=== PATIENT | male | born 1930 | race Caucasian/White ===

== ENCOUNTER 2016-02-29 08:00 | Outpatient (CLI) | payer MEDICARE, OTHER | END 2016-02-29 08:01 | disposition home or self-care (01) | DX: I10 Essential (primary) hypertension (principal); G62.9 Polyneuropathy, unspecified ==

== ENCOUNTER 2016-07-25 07:28 | Outpatient (CLI) | payer MEDICARE, OTHER ==
[2016-07-25 13:22] LABS: BASOPHILS % (AUTO) 0.6 %; EOSINOPHILS # (AUTO) 0.2 10^3/uL (0.0-0.7); EOSINOPHILS % (AUTO) 2.9 %; HCT - HEMATOCRIT 45.7 % (42.0-52.0); HGB - HEMOGLOBIN 15.3 g/dL (14.0-18.0); LYMPHOCYTES # (AUTO) 2.1 10^3/uL (1.5-3.5); LYMPHOCYTES % (AUTO) 28.8 %; MEAN CORPUSCULAR HEMOGLOBIN 33.1 pg (27.0-31.0); MEAN CORPUSCULAR HGB CONC 33.5 g/dL (32.0-36.0); MEAN CORPUSCULAR VOLUME 98.7 fL (80.0-94.0); MEAN PLATELET VOLUME 11.2 fL (7.4-11.4); MONOCYTES # (AUTO) 0.7 10^3/uL (0.0-1.0); MONOCYTES % (AUTO) 10.2 %; NEUTROPHILS # (AUTO) 4.1 10^3/uL (1.5-6.6); NEUTROPHILS % (AUTO) 57.5 %; RED BLOOD COUNT 4.63 10^6/uL (4.70-6.10); RED CELL DISTRIBUTION WIDTH 13.5 % (12.0-15.0); UNCORRECTED WHITE BLOOD COUNT 7.2 x10^3/uL; WHITE BLOOD COUNT 7.2 x10^3/uL (4.8-10.8)
[2016-07-25 13:34] LABS: ALBUMIN/GLOBULIN RATIO 1.2 (1.0-2.2); BILIRUBIN,TOTAL 0.9 mg/dL (0.2-1.0); BUN - BLOOD UREA NITROGEN 29 mg/dL (6-20); CALCIUM 8.8 mg/dL (8.5-10.3); CARBON DIOXIDE - CO2 26 mmol/L (21-32); CHLORIDE 106 mmol/L (101-111); CHOL/HDL RATIO 3.5 (<5.0); CHOLESTEROL 143 mg/dL; CREATININE 1.4 mg/dL (0.6-1.2); GFR - MDRD 48 (>89); GLUCOSE 91 mg/dL (70-100); HDL CHOLESTEROL 41 mg/dL; LDL/HDL RATIO 1.8 (<3.6); POTASSIUM 4.1 mmol/L (3.5-5.0); SODIUM 139 mmol/L (135-145); TOTAL PROTEIN 6.9 g/dL (6.7-8.2); TRIGLYCERIDES 138 mg/dL; VLDL CHOLESTEROL 28 mg/dL
[2016-07-29 22:38] LABS: FREE TESTOSTERONE 35.5 pg/mL (30.0-135.0)
== END 2016-07-25 07:29 | disposition home or self-care (01) ==
LOC: LAB.WCP 07:28
PROVIDERS: ATTEND Family Medicine
DX: E78.5 Hyperlipidemia, unspecified (principal); I10 Essential (primary) hypertension; G62.9 Polyneuropathy, unspecified; N28.9 Disorder of kidney and ureter, unspecified; N52.9 Male erectile dysfunction, unspecified
CPT/HCPCS: 36415; 80053; 80061; 84402; 84403; 84443; 85025

== ENCOUNTER 2017-08-25 08:56 | Outpatient (CLI) | payer MEDICARE, OTHER ==
[2017-08-25 12:58] LABS: BASOPHILS # (AUTO) 0.1 10^3/uL (0.0-0.1); EOSINOPHILS # (AUTO) 0.4 10^3/uL (0.0-0.7); EOSINOPHILS % (AUTO) 5.2 %; HGB - HEMOGLOBIN 15.6 g/dL (14.0-18.0); LYMPHOCYTES # (AUTO) 2.5 10^3/uL (1.5-3.5); LYMPHOCYTES % (AUTO) 33.6 %; MEAN CORPUSCULAR HEMOGLOBIN 33.1 pg (27.0-31.0); MEAN CORPUSCULAR HGB CONC 33.2 g/dL (32.0-36.0); MEAN CORPUSCULAR VOLUME 99.8 fL (80.0-94.0); MEAN PLATELET VOLUME 10.5 fL (7.4-11.4); MONOCYTES # (AUTO) 0.7 10^3/uL (0.0-1.0); MONOCYTES % (AUTO) 8.9 %; NEUTROPHILS # (AUTO) 3.8 10^3/uL (1.5-6.6); NEUTROPHILS % (AUTO) 51.3 %; PLT - PLATELET COUNT 219 10^3/uL (130-450); RED BLOOD COUNT 4.72 10^6/uL (4.70-6.10); RED CELL DISTRIBUTION WIDTH 13.5 % (12.0-15.0); WHITE BLOOD COUNT 7.3 x10^3/uL (4.8-10.8)
[2017-08-25 13:29] LABS: ALBUMIN 3.7 g/dL (3.2-5.5); ALBUMIN/GLOBULIN RATIO 1.3 (1.0-2.2); ALKALINE PHOSPHATASE 74 IU/L (42-121); ALT ALANINE AMINOTRANSFERASE 19 IU/L (10-60); AST ASPARTATE AMINOTRANSFERASE 27 IU/L (10-42); BILIRUBIN,TOTAL 0.6 mg/dL (0.2-1.0); BUN - BLOOD UREA NITROGEN 33 mg/dL (6-20); CARBON DIOXIDE - CO2 28 mmol/L (21-32); CHLORIDE 106 mmol/L (101-111); CHOL/HDL RATIO 5.6 (<5.0); CHOLESTEROL 242 mg/dL; CREATININE 1.5 mg/dL (0.6-1.2); GFR - MDRD 44 (>89); GLUCOSE 92 mg/dL (70-100); HDL CHOLESTEROL 43 mg/dL; LDL CHOLESTEROL,CALCULATED 161 mg/dL; LDL/HDL RATIO 3.7 (<3.6); SODIUM 141 mmol/L (135-145); TOTAL PROTEIN 6.5 g/dL (6.7-8.2); VLDL CHOLESTEROL 38 mg/dL
== END 2017-08-25 08:57 ==
LOC: LAB.WCP 08:56
PROVIDERS: ATTEND Family Medicine
DX: I10 Essential (primary) hypertension (principal); E78.5 Hyperlipidemia, unspecified; R53.83 Other fatigue
CPT/HCPCS: 36415; 80053; 80061; 83721; 84443; 85025

== ENCOUNTER 2017-12-08 09:31 | Outpatient (CLI) | payer MEDICARE, OTHER ==
[2017-12-08 14:05] LABS: BASOPHILS # (AUTO) 0.1 10^3/uL (0.0-0.1); BASOPHILS % (AUTO) 1.2 %; EOSINOPHILS # (AUTO) 0.2 10^3/uL (0.0-0.7); EOSINOPHILS % (AUTO) 3.6 %; HGB - HEMOGLOBIN 15.6 g/dL (14.0-18.0); LYMPHOCYTES # (AUTO) 2.2 10^3/uL (1.5-3.5); LYMPHOCYTES % (AUTO) 32.2 %; MEAN CORPUSCULAR HGB CONC 33.9 g/dL (32.0-36.0); MEAN CORPUSCULAR VOLUME 97.3 fL (80.0-94.0); MEAN PLATELET VOLUME 10.5 fL (7.4-11.4); MONOCYTES # (AUTO) 0.7 10^3/uL (0.0-1.0); MONOCYTES % (AUTO) 10.2 %; NEUTROPHILS # (AUTO) 3.5 10^3/uL (1.5-6.6); NEUTROPHILS % (AUTO) 52.8 %; PLT - PLATELET COUNT 202 10^3/uL (130-450); RED BLOOD COUNT 4.74 10^6/uL (4.70-6.10); RED CELL DISTRIBUTION WIDTH 13.5 % (12.0-15.0); WHITE BLOOD COUNT 6.7 x10^3/uL (4.8-10.8)
[2017-12-08 14:40] LABS: ALBUMIN/GLOBULIN RATIO 1.3 (1.0-2.2); ALKALINE PHOSPHATASE 76 IU/L (42-121); ALT ALANINE AMINOTRANSFERASE 19 IU/L (10-60); AST ASPARTATE AMINOTRANSFERASE 28 IU/L (10-42); BILIRUBIN,TOTAL 1.3 mg/dL (0.2-1.0); BUN - BLOOD UREA NITROGEN 27 mg/dL (6-20); CARBON DIOXIDE - CO2 29 mmol/L (21-32); CHLORIDE 101 mmol/L (101-111); CHOL/HDL RATIO 6.5 (<5.0); CHOLESTEROL 286 mg/dL; CREATININE 1.5 mg/dL (0.6-1.2); GFR - MDRD 44 (>89); GLUCOSE 89 mg/dL (70-100); HDL CHOLESTEROL 44 mg/dL; LDL CHOLESTEROL,CALCULATED 197 mg/dL; LDL/HDL RATIO 4.5 (<3.6); SODIUM 140 mmol/L (135-145); VLDL CHOLESTEROL 45 mg/dL
== END 2017-12-08 09:32 | disposition home or self-care (01) ==
LOC: LAB.WCP 09:31
PROVIDERS: ATTEND Family Medicine
DX: E78.5 Hyperlipidemia, unspecified (principal); I10 Essential (primary) hypertension
CPT/HCPCS: 36415; 80053; 80061; 83721; 85025

== ENCOUNTER 2017-12-29 08:42 | Outpatient (CLI) | payer MEDICARE, OTHER ==
[2017-12-29 13:27] LABS: INR 1.8 (0.8-1.2); PT - PROTHROMBIN TIME 19.8 secs (9.9-12.6)
== END 2017-12-29 23:59 ==
LOC: LAB.WCP 08:42
PROVIDERS: ATTEND Family Medicine
DX: I48.91 Unspecified atrial fibrillation (principal); Z79.01 Long term (current) use of anticoagulants
CPT/HCPCS: 36415; 85610

== ENCOUNTER 2018-04-20 08:00 | Outpatient (CLI) | payer MEDICARE, OTHER | END 2018-04-20 23:59 | disposition home or self-care (01) | LOC: LAB.WCP 08:00 | PROVIDERS: ATTEND Family Medicine | DX: I48.91 Unspecified atrial fibrillation (principal); Z79.01 Long term (current) use of anticoagulants ==

== ENCOUNTER 2018-05-18 08:00 | Outpatient (CLI) | payer MEDICARE, OTHER | END 2018-05-18 23:59 | disposition home or self-care (01) | LOC: LAB.WCP 08:00 | PROVIDERS: ATTEND Family Medicine | DX: I48.91 Unspecified atrial fibrillation (principal); Z79.01 Long term (current) use of anticoagulants | CPT/HCPCS: 81025 ==

== ENCOUNTER 2018-06-07 06:47 | Outpatient (CLI) | payer MEDICARE, OTHER | END 2018-06-07 06:48 | disposition critical access hospital (66) | LOC: EMS 06:47 | PROVIDERS: ATTEND Surgery | DX: R42 Dizziness and giddiness (principal); R11.0 Nausea | CPT/HCPCS: A0425; A0427 ==

== ENCOUNTER 2018-06-07 07:08 | Emergency (ER) | payer MEDICARE, OTHER ==
[2018-06-07] MEDS ORDERED: ONDANSETRON ODT 4 MG TABLET TL STA (07:33)
[2018-06-07] MEDS ORDERED: MECLIZINE 12.5 MG TABLET PO STA (07:34)
--- NOTE | 2018-06-07 07:40 | ED Physician Documentation ---
History of Present Illness - Stated complaint Stated Complaint: DIZZY - Chief complaint Chief Complaint: Neuro - History obtained from History obtained from: Patient, EMS - History of Present Illness Timing: Today Pain level max: 0 Pain level now: 0 - Additonal information Additional information: 88-year-old male presents to the emergency department with a feeling of dizziness today. He describes the room is spinning. Worse with movement and better with rest. Has not had similar symptoms previously. No focal neurological deficits. No changes in his vision. No numbness or tingling in his arms or legs. No recent head injury. No headaches. Review of Systems Constitutional: denies: Fever, Chills Nose: denies: Rhinorrhea / runny nose, Congestion Cardiac: denies: Chest pain / pressure, Palpitations Respiratory: denies: Cough GI: denies: Nausea, Vomiting, Diarrhea Skin: denies: Rash Musculoskeletal: denies: Neck pain, Back pain Neurologic: denies: Focal weakness, Numbness, Confused, Altered mental status, Headache, Head injury PD PAST MEDICAL HISTORY - Past Medical History Cardiovascular: Atrial fibrillation Respiratory: None GI: Crohn's disease HEENT: None Psych: None Musculoskeletal: None Derm: None - Past Surgical History Past Surgical History: Yes Cardiovascular: CABG - Present Medications Home Medications: Ambulatory Orders Medication Instructions Recorded Confirmed Atenolol 50 mg PO DAILY 01/23/14 01/23/14 Felodipine [Plendil] 10 mg PO DAILY 01/23/14 01/23/14 Warfarin Sodium [Coumadin] 01/23/14 01/23/14 LORazepam [Ativan] 0.5 mg PO Q6H PRN #10 tablet 06/07/18 Meclizine HCl 25 mg PO Q6H PRN #20 tab.chew 06/07/18 Ondansetron Odt [Zofran] 4 mg TL Q6H PRN #10 tablet 06/07/18 Promethazine [Phenergan] 25 mg PO Q6H PRN #10 tab 06/07/18 Tamsulosin [Flomax] 0.4 mg ORAL DAILY 06/07/18 06/07/18 - Allergies Allergies/Adverse Reactions: Allergies Allergy/AdvReac Type Severity Reaction Status Date / Time No Known Drug Allergies Allergy Verified 06/07/18 07:17 - Social History Does the pt smoke?: No Smoking Status: Never smoker Does the pt drink ETOH?: Yes Does the pt have substance abuse?: No - Immunizations Immunizations are current?: Yes - POLST Patient has POLST: No PD ED PE NORMAL - Vitals Vital signs reviewed: Yes - General General: Alert and oriented X 3, No acute distress, Well developed/nourished - HEENT HEENT: PERRL, Moist mucous membranes - Neck Neck: Supple, no meningeal sign - Cardiac Cardiac: RRR, Strong equal pulses - Respiratory Respiratory: No respiratory distress, Clear bilaterally - Abdomen Abdomen: Soft, Non tender, Non distended - Derm Derm: Warm and dry - Extremities Extremities: No calf tenderness / cord - Neuro Neuro: Alert and oriented X 3, 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 Positive Hallpike to the left. Horizontal nystagmus present. Normal cerebellar test. Normal finger to nose. Results - Vitals Vitals: Vital Signs - 24 hr 06/07/18 06/07/18 06/07/18 07:11 07:38 09:43 Temperature 35.7 C L 36 C L Heart Rate 72 80 85 Respiratory 16 18 18 Rate Blood Pressure 142/72 H 160/78 H 138/76 H O2 Saturation 94 98 96 Oxygen O2 Source Room air - EKG (time done) 0711 Rate: Rate (enter#) (83) Rhythm: Atrial fibrillation [place]: Normal QRS: Normal Ischemia: Normal ST segments - Labs Labs: Laboratory Tests 06/07/18 07:51 Whole Blood INR 2.4 H PD MEDICAL DECISION MAKING - ED course Complexity details: reviewed results, re-evaluated patient, considered differential, d/w patient, d/w family ED course: 88-year-old male with BPPV, affecting the left ear. No cerebellar signs. No evidence of stroke. Feels better after meclizine, Zofran, Ativan and Phenergan. Able to ambulate. No vomiting. Was able to tolerate the Jg maneuver x1. Will prescribe medications for home and follow-up with his doctor. Patient counseled regarding signs and symptoms for which I believe and urgent re- evaluation would be necessary. Patient with good understanding of and agreement to plan and is comfortable going home at this time This document was made in part using voice recognition software. While efforts are made to proofread this document, sound alike and grammatical errors may occur. Departure - Departure Disposition: 01 Home, Self Care Clinical Impression: Vertigo BPPV (benign paroxysmal positional vertigo) Qualifiers: Laterality: left Qualified Code(s): H81.12 - Benign paroxysmal vertigo, left ear Condition: Good Instructions: ED BPV Vertigo Follow-Up: Maria Alejandra Vaz MD [Primary Care Provider] - Prescriptions: LORazepam [Ativan] 0.5 mg PO Q6H PRN #10 tablet PRN Reason: Vertigo Meclizine HCl 25 mg PO Q6H PRN #20 tab.chew PRN Reason: Vertigo Ondansetron Odt [Zofran] 4 mg TL Q6H PRN #10 tablet PRN Reason: Nausea / Vomiting Promethazine [Phenergan] 25 mg PO Q6H PRN #10 tab PRN Reason: Nausea / Vomiting Comments: Return if you worsen. Follow-up with your doctor for further care. This should improve over the next 2-3 days. You can also try the Jg maneuver at home. Your left ear is effected. Discharge Date/Time: 06/07/18 10:52
[2018-06-07] MEDS ORDERED: PROMETHAZINE INJ 25 MG in SODIUM CHLORIDE 0.9% 50 ML IV STA (08:36)
[2018-06-07] MEDS ORDERED: LORazepam 2 MG/ML VIAL IVP STA (09:26)
[2018-06-07 09:44] VITALS: BP 138/76
== END 2018-06-07 10:52 | disposition home or self-care (01) ==
LOC: EDUNIT# → ED 07:08
DX: H81.12 Benign paroxysmal vertigo, left ear (principal)
CPT/HCPCS: 85610; 93005; 96365; 96375; 99284; A9270; J2060; J7040; Q0162

== ENCOUNTER 2018-09-23 09:00 | Outpatient (CLI) | payer MEDICARE, OTHER ==
--- NOTE | 2018-09-24 10:04 | XRAY Report ---
Reason: RIGHT SHOULDER PAIN Procedure Date: 09/23/2018 Accession Number: [id number] / [id number] Procedure: WCP - Shoulder 2 View RT CPT Code: FULL RESULT: EXAM: RIGHT SHOULDER RADIOGRAPHY EXAM DATE: 09/23/2018 11:18 AM. CLINICAL HISTORY: Right shoulder pain. COMPARISON: None. TECHNIQUE: 2 views. FINDINGS: Bones: Normal. No fracture or bone lesion. Joints: The glenohumeral and acromioclavicular joints are normally aligned. 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 Evidence of at least mild glenohumeral joint degenerative disease. Soft tissues: The visualized hemithorax is unremarkable. No soft tissue swelling. IMPRESSION: 1. Two-view shoulder radiography demonstrates no definite acute abnormality. 2. Moderate to severe, acromioclavicular joint degenerative disease, including inferiorly encroaching spurring. 3. There is at least mild glenohumeral joint degenerative disease. RADIA
== END 2018-09-23 23:59 | disposition home or self-care (01) ==
LOC: DI.WCP 09:00 → EDSTATUS 13:02 → DI.WCP 23:59
PROVIDERS: ATTEND Family Medicine
DX: M19.011 Primary osteoarthritis, right shoulder (principal)

== ENCOUNTER 2018-10-05 08:00 | Outpatient (CLI) | payer MEDICARE, OTHER | END 2018-10-05 23:59 | disposition home or self-care (01) | LOC: LAB.WCP 08:00 | PROVIDERS: ATTEND Family Medicine | DX: I48.91 Unspecified atrial fibrillation (principal); Z79.01 Long term (current) use of anticoagulants ==

== ENCOUNTER 2018-10-21 08:00 | Outpatient (CLI) | payer MEDICARE, OTHER | END 2018-10-21 23:59 | disposition home or self-care (01) | LOC: LAB.WCP 08:00 | PROVIDERS: ATTEND Family Medicine | DX: I48.91 Unspecified atrial fibrillation (principal); Z79.01 Long term (current) use of anticoagulants ==

== ENCOUNTER 2018-11-04 08:00 | Outpatient (CLI) | payer MEDICARE, OTHER | END 2018-11-04 23:59 | disposition home or self-care (01) | LOC: LAB.WCP 08:00 | PROVIDERS: ATTEND Family Medicine | DX: I48.91 Unspecified atrial fibrillation (principal); Z79.01 Long term (current) use of anticoagulants ==

== ENCOUNTER 2019-03-26 08:00 | Outpatient (CLI) | payer MEDICARE, OTHER | END 2019-03-26 23:59 | disposition home or self-care (01) | LOC: LAB.WCP 08:00 | PROVIDERS: ATTEND Nurse Practitioner Family | DX: I48.91 Unspecified atrial fibrillation (principal); Z79.01 Long term (current) use of anticoagulants ==

== ENCOUNTER 2019-04-01 07:51 | Outpatient (CLI) | payer MEDICARE, OTHER ==
[2019-04-01 12:51] LABS: BASOPHILS % (AUTO) 0.6 %; EOSINOPHILS # (AUTO) 0.6 10^3/uL (0.0-0.7); EOSINOPHILS % (AUTO) 7.9 %; HGB - HEMOGLOBIN 15.3 g/dL (14.0-18.0); LYMPHOCYTES # (AUTO) 2.8 10^3/uL (1.5-3.5); LYMPHOCYTES % (AUTO) 39.1 %; MEAN CORPUSCULAR HEMOGLOBIN 32.1 pg (27.0-31.0); MEAN CORPUSCULAR HGB CONC 32.8 g/dL (32.0-36.0); MEAN CORPUSCULAR VOLUME 97.7 fL (80.0-94.0); MONOCYTES # (AUTO) 0.6 10^3/uL (0.0-1.0); MONOCYTES % (AUTO) 8.6 %; NEUTROPHILS # (AUTO) 3.1 10^3/uL (1.5-6.6); NEUTROPHILS % (AUTO) 43.5 %; PLT - PLATELET COUNT 213 10^3/uL (130-450); RED BLOOD COUNT 4.77 10^6/uL (4.70-6.10); RED CELL DISTRIBUTION WIDTH 13.2 % (12.0-15.0); WHITE BLOOD COUNT 7.2 x10^3/uL (4.8-10.8)
[2019-04-01 13:22] LABS: ALBUMIN 3.9 g/dL (3.2-5.5); ALBUMIN/GLOBULIN RATIO 1.2 (1.0-2.2); ALKALINE PHOSPHATASE 61 IU/L (42-121); ALT ALANINE AMINOTRANSFERASE 21 IU/L (10-60); AST ASPARTATE AMINOTRANSFERASE 27 IU/L (10-42); BILIRUBIN,TOTAL 0.7 mg/dL (0.2-1.0); BUN - BLOOD UREA NITROGEN 39 mg/dL (6-20); CALCIUM 8.8 mg/dL (8.5-10.3); CARBON DIOXIDE - CO2 28 mmol/L (21-32); CHLORIDE 103 mmol/L (101-111); CHOL/HDL RATIO 4.3 (<5.0); CHOLESTEROL 199 mg/dL; CREATININE 1.6 mg/dL (0.6-1.2); GFR - MDRD 41 (>89); GLUCOSE 92 mg/dL (70-100); HDL CHOLESTEROL 46 mg/dL; LDL CHOLESTEROL,CALCULATED 119 mg/dL; LDL/HDL RATIO 2.6 (<3.6); SODIUM 140 mmol/L (135-145); TOTAL PROTEIN 7.1 g/dL (6.7-8.2); VLDL CHOLESTEROL 34 mg/dL
== END 2019-04-01 23:59 | disposition home or self-care (01) ==
LOC: LAB.WCP 07:51
PROVIDERS: ATTEND Nurse Practitioner Family
DX: I10 Essential (primary) hypertension (principal); E78.5 Hyperlipidemia, unspecified; I48.91 Unspecified atrial fibrillation
CPT/HCPCS: 36415; 80053; 80061; 83721; 85025

== ENCOUNTER 2019-05-07 08:00 | Outpatient (CLI) | payer MEDICARE, OTHER | END 2019-05-07 23:59 | disposition home or self-care (01) | LOC: LAB.WCP 08:00 | PROVIDERS: ATTEND Nurse Practitioner Family | DX: I48.91 Unspecified atrial fibrillation (principal); Z79.01 Long term (current) use of anticoagulants ==

== ENCOUNTER 2019-06-04 08:00 | Outpatient (CLI) | payer MEDICARE, OTHER | END 2019-06-04 23:59 | disposition home or self-care (01) | LOC: LAB.WCP 08:00 | PROVIDERS: ATTEND Family Medicine | DX: I48.91 Unspecified atrial fibrillation (principal); Z79.01 Long term (current) use of anticoagulants ==

== ENCOUNTER 2019-06-25 08:00 | Outpatient (CLI) | payer MEDICARE, OTHER | END 2019-06-25 23:59 | disposition home or self-care (01) | LOC: LAB.WCP 08:00 | PROVIDERS: ATTEND Nurse Practitioner Family | DX: I48.91 Unspecified atrial fibrillation (principal); Z79.01 Long term (current) use of anticoagulants ==

== ENCOUNTER 2019-07-23 08:00 | Outpatient (CLI) | payer MEDICARE, OTHER | END 2019-07-23 23:59 | disposition home or self-care (01) | LOC: LAB.WCP 08:00 | PROVIDERS: ATTEND Nurse Practitioner Family | DX: I48.91 Unspecified atrial fibrillation (principal); Z79.01 Long term (current) use of anticoagulants ==

== ENCOUNTER 2019-08-13 08:00 | Outpatient (CLI) | payer MEDICARE, OTHER | END 2019-08-13 23:59 | disposition home or self-care (01) | LOC: LAB.WCP 08:00 | PROVIDERS: ATTEND Nurse Practitioner Family | DX: I48.91 Unspecified atrial fibrillation (principal); Z79.01 Long term (current) use of anticoagulants ==

== ENCOUNTER 2019-08-27 08:00 | Outpatient (CLI) | payer MEDICARE, OTHER | END 2019-08-27 23:59 | disposition home or self-care (01) | LOC: LAB.WCP 08:00 | PROVIDERS: ATTEND Nurse Practitioner Family | DX: I48.91 Unspecified atrial fibrillation (principal); Z79.01 Long term (current) use of anticoagulants ==

== ENCOUNTER 2019-09-24 08:00 | Outpatient (CLI) | payer MEDICARE, OTHER | END 2019-09-24 23:59 | disposition home or self-care (01) | LOC: LAB.WCP 08:00 | PROVIDERS: ATTEND Nurse Practitioner Family | DX: I48.91 Unspecified atrial fibrillation (principal); Z79.01 Long term (current) use of anticoagulants ==

== ENCOUNTER 2019-10-06 13:28 | Outpatient (CLI) | payer MEDICARE, OTHER ==
--- NOTE | 2019-10-06 15:11 | XRAY Report ---
PROCEDURE: Lumbar Spine 2 View INDICATIONS: LBP, sciatica TECHNIQUE: 3 views of the lumbar spine were acquired. COMPARISON: None. FINDINGS: Bones: 5 [id number] vertebrae are present. There is normal bony alignment. No vertebral body compression fractures. No suspicious bony lesions. Note is made of moderately severe degenerative d isc disease and facet osteoarthritis over the lungs by becoming progressively more prominent from the middle third through the lower third of this region. Note is made of facet osteoarthritis prominent at L4-5 and L5-S1 to the degree that significant spinal and foraminal stenosis expected Soft tissues: Overlying bowel gas pattern is normal. No suspicious soft tissue calcifications. IMPRESSION: No trauma found, no subluxation present. 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 Reviewed by: Luigi Palmer MD on 10/06/2019 3:10 PM PDT Approved by: Luigi Palmer MD on 10/06/2019 3:10 PM PDT Station ID: [id number]
== END 2019-10-06 13:29 | disposition home or self-care (01) ==
LOC: DI.N 13:28
PROVIDERS: ATTEND Nurse Practitioner Family
DX: M51.36 Other intervertebral disc degeneration, lumbar region (principal); M47.816 Spondylosis without myelopathy or radiculopathy, lumbar region; M47.817 Spondylosis without myelopathy or radiculopathy, lumbosacral region
CPT/HCPCS: 72100

== ENCOUNTER 2019-10-22 08:00 | Outpatient (CLI) | payer MEDICARE, OTHER | END 2019-10-22 23:59 | disposition home or self-care (01) | LOC: LAB.WCP 08:00 | PROVIDERS: ATTEND Nurse Practitioner Family | DX: I48.91 Unspecified atrial fibrillation (principal); Z79.01 Long term (current) use of anticoagulants ==

== ENCOUNTER 2019-11-19 08:00 | Outpatient (CLI) | payer MEDICARE, OTHER | END 2019-11-19 23:59 | disposition home or self-care (01) | LOC: LAB.WCP 08:00 | PROVIDERS: ATTEND Nurse Practitioner Family | DX: Z79.01 Long term (current) use of anticoagulants (principal) ==

== ENCOUNTER 2019-12-04 10:44 | Emergency (ER) | payer MEDICARE, OTHER ==
--- NOTE | 2019-12-04 12:18 | ED Physician Documentation ---
PD HPI BACK PAIN - Stated complaint Stated Complaint: BACK PX - Chief complaint Chief Complaint: Back Pain - History obtained from History obtained from: Patient - Additional information Additional information: 89-year-old gentleman with history of atrial fibrillation on warfarin, hypertension. He has a history of low back pain but over the last 4 days has had right-sided low and mid almost flank pain. Its been constant but worsens when he changes position, especially when he twists or stands up. Does not feel like prior low back pain. There is no radiation to it. No urinary complaints or hematuria. No incontinence. No weakness, numbness, or tingling in the legs or saddle area except for chronic neuropathy which is unchanged. No fevers. No history of renal colic. No nausea. Review of Systems Ten Systems: 10 systems reviewed and negative Constitutional: denies: Fever, Chills Cardiac: denies: Chest pain / pressure, Palpitations Respiratory: denies: Dyspnea, Cough PD PAST MEDICAL HISTORY - Past Medical History Past Medical History: Yes Cardiovascular: Atrial fibrillation Respiratory: None Neuro: None Endocrine/Autoimmune: None GI: Crohn's disease HEENT: None Psych: None Musculoskeletal: None Derm: None - Past Surgical History Past Surgical History: Yes Cardiovascular: CABG - Present Medications Home Medications: Ambulatory Orders Medication Instructions Recorded Confirmed Felodipine [Plendil] 10 mg PO DAILY 01/23/14 01/23/14 Warfarin Sodium [Coumadin] 5 mg PO DAILY 01/23/14 01/23/14 Cyclobenzaprine [Flexeril] 10 mg PO TID PRN #20 tablet 12/04/19 - Allergies Allergies/Adverse Reactions: Allergies Allergy/AdvReac Type Severity Reaction Status Date / Time No Known Drug Allergies Allergy Verified 06/07/18 07:17 - Social History Does the pt smoke?: No Smoking Status: Never smoker Does the pt drink ETOH?: Yes Does the pt have substance abuse?: No - Immunizations Immunizations are current?: Yes - POLST Patient has POLST: No PD ED PE NORMAL - Vitals Vital signs reviewed: Yes - General General: Alert and oriented X 3, No acute distress - Abdomen Abdomen: Soft, Non tender - Back Back: No CVA TTP, No spinal TTP - Extremities Extremities: Other (The patient has equal and normal Achilles and patellar reflexes bilaterally. Normal sensation in all areas of the legs. Patient denies saddle anesthesia. Normal strength in flexion-extension at the ankles, knees, and flexion of the hips.) - Neuro Neuro: Alert and oriented X 3, Normal speech Results - Vitals Vitals: Vital Signs - 24 hr 12/04/19 12/04/19 10:52 14:31 Temperature 36.6 C 36.6 C Heart Rate 96 84 Respiratory 16 18 Rate Blood Pressure 129/84 H 136/74 H O2 Saturation 99 99 Oxygen O2 Source Room air - Labs Labs: Laboratory Tests 12/04/19 12/04/19 12/04/19 13:09 13:09 13:09 WBC 7.9 RBC 4.74 Hgb 15.8 Hct 47.0 MCV 99.2 H MCH 33.3 H MCHC 33.6 RDW 13.2 Plt Count 213 MPV 11.8 H Neut # (Auto) 3.6 Lymph # (Auto) 3.1 [place] # (Auto) 0.7 Eos # (Auto) 0.4 Baso # (Auto) 0.1 Absolute Nucleated RBC 0.00 Nucleated RBC % 0.0 PT 26.1 H INR 2.5 H Sodium 140 Potassium 4.4 Chloride 103 Carbon Dioxide 27 Anion Gap 10.0 BUN 36 H Creatinine 1.6 H Estimated GFR (MDRD) 41 L Glucose 90 Calcium 9.3 Total Bilirubin 0.8 AST 27 ALT 20 Alkaline Phosphatase 64 Total Protein 7.5 Albumin 4.3 Globulin 3.2 Albumin/Globulin Ratio 1.3 - Rads (name of study) CT KUB Radiology: EMP read contemporaneously (Renal cysts, otherwise negative with incidental findings.) PD MEDICAL DECISION MAKING - ED course ED course: 89-year-old gentleman presents with right flank pain, description and motion related issues make it seem musculoskeletal. Because of advanced age and location of pain work-up was done showing labs at his baseline, the creatinine is chronic, therapeutic INR. Advanced imaging was done to rule out renal colic, AAA, spontaneous psoas hemorrhage. None of these were present. He declined pain medication here but was prescribed a muscle relaxer. He is already taking Tylenol which he felt was sufficient although his did not. Departure - Departure Disposition: 01 Home, Self Care Clinical Impression: Back pain Qualifiers: Back pain location: low back pain Chronicity: acute Back pain laterality: right Sciatica presence: without sciatica Qualified Code(s): M54.5 - Low back pain Condition: Good Instructions: ED Neck Back Pain General Prescriptions: Cyclobenzaprine [Flexeril] 10 mg PO TID PRN #20 tablet PRN Reason: Spasms Comments: Continue the Tylenol. Return if worsening. Follow-up with your doctor lisa law. Do not drink or drive while taking prescription muscle relaxer. Discharge Date/Time: 12/04/19 14:32
--- NOTE | 2019-12-04 13:04 | CT Report ---
PROCEDURE: Abdomen/Pelvis WO INDICATIONS: R flank pain TECHNIQUE: Noncontrast 5 mm thick sections acquired from the diaphragms to the symphysis. 5 mm coronal and sagi ttal reformats were then performed. For radiation dose reduction, the following was used: automated exposure control, adjustment of mA and/or kV according to patient size. COMPARISON: 01/23/2014 FINDINGS: Image quality: Excellent. ABDOMEN: Lung bases: Lung bases are clear. Heart size is normal. Sternotomy wires are partially seen. At le ast moderate coronary artery calcification can be seen. Solid organs: Liver and spleen are normal in size. Gallbladder is partially collapsed at the time o f this study. Pancreas is normal in contours. No adrenal nodules. Kidneys are normal in size, without hydronephrosis or nephrolithiasis. There is a prominent simple a ppearing right renal cyst seen that measures 11.3 cm. Smaller simple appearing right renal cysts are seen elsewhere. Peritoneum and bowel: Unenhanced bowel loops demonstrate normal wall thickness and caliber. No free fluid or air. A normal appendix is incidentally noted. Diverticulosis can be seen, without jamie f indings of active diverticulitis. Nodes and vessels: No retroperitoneal or mesenteric adenopathy by size criteria. Aorta and inferior vena cava are normal in caliber. Atherosclerotic calcification is seen. Miscellaneous: No ventral hernias. PELVIS: Genitourinary: Bladder wall thickness is normal. Miscellaneous: No inguinal adenopathy. A fat-containing left inguinal hernia is seen. No enlarged i nguinal or pelvic lymph nodes are seen. Bones: No suspicious bony lesions. No vertebral body compression fractures. Mild levoconvex scolio tic curvature is seen. Age-appropriate degenerative changes are seen. Fusion changes are seen of t he sacroiliac joints IMPRESSION: No imaging explanation is found for the patient's presenting symptoms. No findings of kidney stones o r obstructive uropathy can be seen. Simple appearing right renal cysts, including a simple cyst measuring 11.3 cm. Incidental note is made of: Sternotomy wires Atherosclerotic calcification, including at least moderate coronary artery calcification Normal appendix Diverticulosis can be seen, without jamie findings of active diverticulitis. Fat-containing left inguinal hernia Levoconvex scoliotic curvature Sacroiliac joint fusion Reviewed by: Harjeet George MD on 12/04/2019 12:03 PM AKDT Approved by: Harjeet George MD on 12/04/2019 12:03 PM BALA Station ID: [id number]
[2019-12-04 13:20] LABS: BASOPHILS # (AUTO) 0.1 10^3/uL (0.0-0.1); EOSINOPHILS # (AUTO) 0.4 10^3/uL (0.0-0.7); EOSINOPHILS % (AUTO) 4.9 %; HGB - HEMOGLOBIN 15.8 g/dL (14.0-18.0); LYMPHOCYTES # (AUTO) 3.1 10^3/uL (1.5-3.5); LYMPHOCYTES % (AUTO) 38.9 %; MEAN CORPUSCULAR HEMOGLOBIN 33.3 pg (27.0-31.0); MEAN CORPUSCULAR HGB CONC 33.6 g/dL (32.0-36.0); MEAN CORPUSCULAR VOLUME 99.2 fL (80.0-94.0); MEAN PLATELET VOLUME 11.8 fL (7.4-11.4); MONOCYTES # (AUTO) 0.7 10^3/uL (0.0-1.0); MONOCYTES % (AUTO) 9.2 %; NEUTROPHILS # (AUTO) 3.6 10^3/uL (1.5-6.6); NEUTROPHILS % (AUTO) 45.7 %; PLT - PLATELET COUNT 213 10^3/uL (130-450); RED BLOOD COUNT 4.74 10^6/uL (4.70-6.10); RED CELL DISTRIBUTION WIDTH 13.2 % (12.0-15.0); WHITE BLOOD COUNT 7.9 x10^3/uL (4.8-10.8)
[2019-12-04 13:26] LABS: INR 2.5 (0.8-1.2); PT - PROTHROMBIN TIME 26.1 secs (9.9-12.6)
[2019-12-04 13:29] LABS: ALBUMIN 4.3 g/dL (3.2-5.5); ALBUMIN/GLOBULIN RATIO 1.3 (1.0-2.2); BILIRUBIN,TOTAL 0.8 mg/dL (0.2-1.0); CALCIUM 9.3 mg/dL (8.5-10.3); CREATININE 1.6 mg/dL (0.6-1.2); TOTAL PROTEIN 7.5 g/dL (6.7-8.2)
[2019-12-04 14:32] VITALS: BP 136/74
== END 2019-12-04 14:32 | disposition home or self-care (01) ==
LOC: ED 10:44
DX: M54.5 Low back pain (principal); I48.91 Unspecified atrial fibrillation; Z79.01 Long term (current) use of anticoagulants; N28.1 Cyst of kidney, acquired; I10 Essential (primary) hypertension; Z95.1 Presence of aortocoronary bypass graft
CPT/HCPCS: 36415; 74176; 80053; 85025; 85610; 99284

== ENCOUNTER 2019-12-05 11:21 | Emergency (ER) | payer MEDICARE, OTHER ==
--- NOTE | 2019-12-05 11:42 | ED Physician Documentation ---
PD HPI BACK PAIN - Stated complaint Stated Complaint: BACK PX - Chief complaint Chief Complaint: Back Pain - History obtained from History obtained from: Patient - History of Present Illness Timing - onset: How many days ago (several) Timing - duration: Days (4-5) Timing - details: Gradual onset, Still present (gradually worsening), Waxing and waning Location: Lower, Right Quality: Pain, Spasm. No: Tearing Associated symptoms: No: Fever, Weakness, Numbness Worsened by: Movement, Twisting. No: Palpation Contributing factors: No: Trauma Similar symptoms before: Has not had sx before Recently seen: Emergency Dept (yesterday for this) Review of Systems Constitutional: denies: Fever, Myalgias GI: denies: Abdominal Pain, Nausea, Vomiting Skin: denies: Rash Neurologic: denies: Focal weakness, Numbness PD PAST MEDICAL HISTORY - Past Medical History Cardiovascular: Atrial fibrillation Respiratory: None Neuro: None Endocrine/Autoimmune: None GI: Crohn's disease HEENT: None Psych: None Musculoskeletal: None Derm: None - Past Surgical History Past Surgical History: Yes Cardiovascular: CABG - Present Medications Home Medications: Ambulatory Orders Medication Instructions Recorded Confirmed Felodipine [Plendil] 10 mg PO DAILY 01/23/14 01/23/14 Warfarin Sodium [Coumadin] 5 mg PO DAILY 01/23/14 01/23/14 Cyclobenzaprine [Flexeril] 10 mg PO TID PRN #20 tablet 12/04/19 Oxycodone HCl 5 mg PO Q8H PRN #15 tablet 12/05/19 dexAMETHasone [Decadron] 4 mg PO DAILY #7 tablet 12/05/19 - Allergies Allergies/Adverse Reactions: Allergies Allergy/AdvReac Type Severity Reaction Status Date / Time No Known Drug Allergies Allergy Verified 12/05/19 11:40 - Social History Does the pt smoke?: No Smoking Status: Never smoker Does the pt drink ETOH?: Yes Does the pt have substance abuse?: No - Immunizations Immunizations are current?: Yes - POLST Patient has POLST: No PD ED PE NORMAL - Vitals Vital signs reviewed: Yes - General General: Alert and oriented X 3, Well developed/nourished, Other (appears in pain and guarding ROM of the low back. ) - Cardiac Cardiac: RRR, No murmur - Respiratory Respiratory: Clear bilaterally - Abdomen Abdomen: Soft, Non tender - Back Back: No spinal TTP (but is tender right paralumbar muscles. ) - Derm Derm: Normal color, Warm and dry, No rash - Neuro Neuro: Alert and oriented X 3, No motor deficit, No sensory deficit, Normal speech Results - Vitals Vitals: Vital Signs - 24 hr 12/05/19 12/05/19 11:33 13:30 Temperature 36.6 C 36.6 C Heart Rate 86 76 Respiratory 20 18 Rate Blood Pressure 164/94 H 176/102 H O2 Saturation 99 97 Oxygen O2 Source Room air PD MEDICAL DECISION MAKING - ED course Complexity details: reviewed old records (was just in ER with labs and CT done without specific findings. ), considered differential, d/w patient Departure - Departure Disposition: Home, Self Care Clinical Impression: Acute lumbar back pain Qualifiers: Back pain laterality: unspecified Sciatica presence: without sciatica Qualified Code(s): M54.5 - Low back pain Condition: Stable Record reviewed to determine appropriate education?: Yes Follow-Up: NORIS CAMPBELL, MSN, [employer] [Primary Care Provider] - Prescriptions: dexAMETHasone [Decadron] 4 mg PO DAILY #7 tablet Oxycodone HCl 5 mg PO Q8H PRN #15 tablet PRN Reason: Pain Comments: Heat and gentle range of motion for the back to reduce stiffness. Use Decadron steroid anti-inflammatory daily for the next week. Continue usual medications. Use Tylenol 500 mg 4 times a day regularly. To that add oxycodone every 6 hours if needed for pain. You can continue the muscle relaxants periodically if needed for spasms and stiffness. Recheck if not improving well over the next few days. Discharge Date/Time: 12/05/19 13:41
[2019-12-05] MEDS ORDERED: HYDROmorphone 2 MG/ML VIAL IM STA (12:18)
[2019-12-05] MEDS ORDERED: DEXAMETHASONE 10 MG/ML VIAL PO STA (12:18)
[2019-12-05] MEDS ORDERED: CHERRY SYRUP 10 ML UDC PO ONE (12:18)
[2019-12-05] MEDS ORDERED: KETOROLAC 30 MG/ML VIAL IM STA (12:18)
[2019-12-05 13:31] VITALS: BP 176/102
== END 2019-12-05 13:41 | disposition home or self-care (01) ==
LOC: ED 11:21
DX: M54.5 Low back pain (principal); I48.91 Unspecified atrial fibrillation; Z79.01 Long term (current) use of anticoagulants
CPT/HCPCS: 96372; 99283; 99284; A9270; J1170

== ENCOUNTER 2019-12-31 08:00 | Outpatient (CLI) | payer MEDICARE, OTHER | END 2019-12-31 23:59 | disposition home or self-care (01) | LOC: LAB.WCP 08:00 | PROVIDERS: ATTEND Nurse Practitioner | DX: Z79.01 Long term (current) use of anticoagulants (principal) ==

== ENCOUNTER 2020-02-16 08:00 | Outpatient (CLI) | payer MEDICARE, OTHER | END 2020-02-16 23:59 | disposition home or self-care (01) | LOC: LAB.WCP 08:00 | PROVIDERS: ATTEND Physician Assistant | DX: Z79.01 Long term (current) use of anticoagulants (principal) ==